=== PATIENT | female | born 2005 | race Caucasian/White ===

== ENCOUNTER 2024-08-08 13:57 | Emergency (ER) | payer OTHER ==
[~2024-08-08] VITALS: Ht 167.6 cm; Wt 72.6 kg
[2024-08-08 15:28] VITALS: TEMP 98.4
[2024-08-08] MEDS ORDERED: diphenhydrAMINE HCL 50 MG/ML VIAL ONE (17:04)
[2024-08-08] MEDS ORDERED: dexaMETHasone SOD PHOSPHATE 1 ML ONE (17:04)
[2024-08-08] MEDS ORDERED: PROCHLORPERAZINE EDISYLATE 10 MG/2 ML VIAL ONE (17:05)
[2024-08-08] MEDS: IV NS 0.9% 1,000 ML BAG IV ONE (17:28)
[2024-08-08] MEDS: diphenhydrAMINE HCL 50 MG/ML VIAL IV ONE (17:29)
[2024-08-08] MEDS: PROCHLORPERAZINE EDISYLATE 10 MG/2 ML VIAL IVP ONE (17:29)
[2024-08-08] MEDS: dexaMETHasone SOD PHOSPHATE 10 MG/ML VIAL IV ONE (17:29)
[2024-08-08] MEDS ORDERED: KETOROLAC TROMETHAMINE 15 MG/ML VIAL ONE (18:00)
[2024-08-08] MEDS: KETOROLAC TROMETHAMINE 15 MG/ML VIAL IV ONE (18:01)
[2024-08-08 18:29] VITALS: BP 108/64; O2SAT 98
== END 2024-08-08 18:22 | disposition home or self-care (01) ==
LOC: ER 13:57
DX: G43.909 Migraine, unspecified, not intractable, without status migrainosus (principal); R11.2 Nausea with vomiting, unspecified
CPT/HCPCS: 99284; 96374; 96375; 96361; 84703; J0780; J1100; J1200; J7030; J1885